=== PATIENT | female | born 1985 | race Caucasian/White ===

== ENCOUNTER 2018-09-06 10:45 | Inpatient (IN) ==
[2018-09-06] MEDS ORDERED: Diphtheria/Tetanus/Pertussis Vaccine Inj 0.5 ML Syringe IM ONE (10:50)
[2018-09-06] MEDS ORDERED: ceFAZolin 2 GM Premix Inj 2 GM/50 ML PIGGYBACK IV.SIG ONE ×2 (10:50→16:53)
[2018-09-06] MEDS ORDERED: fentaNYL Citrate Inj 100 MCG/2 ML Ampul ONE ×2 (10:52→19:41)
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
[2018-09-06 11:13] LABS: Baso % (Auto) 0.5 % (0.0-2.0); Eos % (Auto) 0.2 % (0.0-4.0); Hematocrit 38.5 % (35.0-46.0); Hemoglobin 12.8 gm/dL (11.6-15.3); Lymph # (Auto) 1.5 th/mm3 (1.0-4.8); Lymph % (Auto) 18.5 % (9.0-44.0); Mean Corpuscular HGB Conc 33.3 % (32.0-36.0); Mean Corpuscular Hemoglobin 32.1 pg (27.0-34.0); Mean Corpuscular Volume 96.2 fL (80.0-100.0); Mean Platelet Volume 8.3 fL (7.0-11.0); Mono # (Auto) 0.4 th/mm3 (0.0-0.9); Mono % (Auto) 5.4 % (0.0-8.0); Neut # (Auto) 6.2 th/mm3 (1.8-7.7); Neut % (Auto) 75.4 % (16.0-70.0); Platelet Count 280 th/mm3 (150-450); Red Cell Distribution Width 13.2 % (11.6-17.2); White Blood Count 8.3 th/mm3 (4.0-11.0)
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
[2018-09-06 11:22] LABS: Activated Partial Thrombo Time 29.7 sec (23.4-31.7); INR 1.1 Ratio; Prothrombin Time 10.7 sec (9.8-11.6)
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
[2018-09-06] MEDS ORDERED: Morphine Inj 4 MG/ML Vial IV.PUSH ONE (11:41)
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
[2018-09-06] MEDS ORDERED: Post-op Orders (for Pharmacy) OTHER ONE (11:54)
[2018-09-06] MEDS ORDERED: Naloxone Inj 0.4 MG/ML Vial IV.PUSH PRN (11:54)
[2018-09-06] MEDS ORDERED: Bisacodyl 10 MG Supp RECTAL PRN (11:54)
[2018-09-06] MEDS: Sod Chloride 0.9% Inj 1,000 ML IV.CONT SCH ×2 (12:35→21:06)
[2018-09-06] MEDS: Morphine Inj 4 MG/ML Vial IV.PUSH PRN ×2 (13:39→22:42)
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
[2018-09-06] MEDS ORDERED: Ketamine Inj 50 MG/5 ML Syringe IV.PUSH ONE (16:25)
[2018-09-06] MEDS ORDERED: Lidocaine PF 1% Inj 5 ML Syringe OTHER ONE (16:29)
[2018-09-06] MEDS ORDERED: Phenylephrine/NS 1000 MCG/10ML Syringe IV.PUSH ONE (16:29)
[2018-09-06] MEDS ORDERED: Chlorhexidine Gluconate 2% 1 Pack (2 Cloths) TOPICAL SCH (16:54)
[2018-09-06] MEDS ORDERED: Metoprolol Tartrate 25 MG Tablet PO SCH (16:54)
[2018-09-06] MEDS ORDERED: Sodium Chlor 0.9% Inj 500 ML IV.SIG SCH (17:00)
[2018-09-06] MEDS ORDERED: Bupivacaine PF 0.5% Inj 30 ML Vial ONE (19:04)
[2018-09-06] MEDS ORDERED: *Meperidine Inj 25 MG/ML Vial PERIprocedural Use ONLY ONE (19:39)
[2018-09-06] MEDS ORDERED: *Ondansetron Inj 4 MG/2 ML Vial PERIprocedural Use ONLY ONE (19:43)
[2018-09-06] MEDS ORDERED: *morphine SULFATE 4 MG/ML PERIprocedure ONLY ONE (19:54)
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
--- NOTE | 2018-09-06 20:15 | P.BOP ---
- Preoperative Diagnosis (1) Laceration of left foot with tendon involvement (2) Fracture of navicular (scaphoid) bone of foot, open (3) Laceration of tendon of left ankle (4) Degloving injury of foot - Postoperative Diagnosis (1) Degloving injury of foot (2) Fracture of navicular (scaphoid) bone of foot, open (3) Laceration of left foot with tendon involvement (4) Laceration of tendon of left ankle Date of procedure: 09/06/18 Procedure: 1. Irrigation and debridement of left foot open fractures/degloving injury 2. External fixation left foot/ankle Left dorsal foot/ankle with absent skin across top of midfoot and degloving of medial, distal, and lateral aspects across dorsal foot and absent long and short extensor tendons. There is noted to be visible bone to dorsal aspect of cuneiforms in base of wound. Dorsalis pedis pulse is present and palpable in base of wound. Skin surrounding opening has abrasion at most proximal and lateral aspects. Diffuse debris throughout the wound with glass, gravel, small black bits the size of glitter. Foot is warm to touch with capillary refill intact to all digits. Irrigation with 12L normal saline and debridement of nonviable tissue and debris with #15 blade and rongeur. Examined tissue and found absence of extensor digitorum brevis and absence of distal aspect of extensor digitorum longus tendon with retraction up to anterior ankle and frayed ends with debris noted there and debrided. End of EDL tendon stump tagged with 3-0 prolene suture for future procedure. External fixation device place using two trans-tibial pins and one transcalcaneal pin, as well as two partially threaded half-pins in 5th and 1st metatarsal bases, respectively, connected to hold foot in dorsiflexion to reduce tension on anterior foot. Partial closure with 0 nylon, 2-0 nylon and 3-0 prolene, followed by application of xeroform and small wound vac to dorsal foot/ankle. Measurement of residual dorsal foot/ankle wound is approximately 4.5cm x 3.5cm x 0.5cm depth Xeroform to pin sites and 4x4 with cast padding and short posterior splint applied with tyson bandage. No tourniquet utilized. DISPOSITION: Nonweightbearing left lower extremity PT ordered Vac orders in front of chart for future. Will likely have external fixator on for the duration of her healing time period. Will have another washout in a few days with Dr Goldberg, then, if culture negative, may have another washout with possible graft and tendon procedure over the weekend or early the following week. Anesthesia: GETA, local (30mL 0.5% marcaine plain) Surgeon: Oirn Rogel DPM Front Maker: staff Estimated blood loss (mL): 50 Pathology: other (1. culture left tendon (EDL)) Condition: stable Disposition: PACU
[2018-09-06] MEDS: Senna/Docusate Sodium 8.6/50 MG Tablet PO SCH (21:05)
[2018-09-06] MEDS: ceFAZolin 1 GM Premix Inj 1 GM/50 ML FROZ.PIGGY IV.SIG SCH (21:05)
--- NOTE | 2018-09-06 21:23 | XR ---
EXAM DATE: 09/06/2018 8:37 PM EST AGE/SEX: 89 years / Female INDICATIONS: Post external fixator left foot CLINICAL DATA: This is the patient's subsequent encounter. Patient reports that signs and symptoms h ave been present for 1 day and indicates a pain score of Nonresponsive. MEDICAL/SURGICAL HISTORY: Non-responsive. Non-responsive. COMPARISON: [facility], TIBIA FIBULA LEFT 2V, 09/06/2018. . FINDINGS: External fixation apparatus is seen extending from the proximal metatarsals towards the the tibia. No rmal alignment. CONCLUSION: External fixation placement as above. Electronically signed by: Puma Zuniga MD 09/06/2018 9:22 PM EST
--- NOTE | 2018-09-06 21:24 | XR ---
EXAM DATE: 09/06/2018 8:35 PM EST AGE/SEX: 89 years / Female INDICATIONS: Post external fixator left tibia CLINICAL DATA: This is the patient's subsequent encounter. Patient reports that signs and symptoms h ave been present for 1 day and indicates a pain score of Nonresponsive. MEDICAL/SURGICAL HISTORY: Non-responsive. Non-responsive. [place] [facility] [place], [place]. . FINDINGS: There is external fixation extending inferiorly from the mid tibial shaft. Avulsion fracture noted at the superior aspect of the tarsal navicular. CONCLUSION: External fixation as above. Electronically signed by: Puma Zuniga MD 09/06/2018 9:23 PM EST
--- NOTE | 2018-09-06 22:01 | XR ---
EXAM DATE: 09/06/2018 9:20 PM EST AGE/SEX: 89 years / Female INDICATIONS: Ex fix left ankle. CLINICAL DATA: This is the patient's initial encounter. Patient reports that signs and symptoms have been present for 1 day and indicates a pain score of Nonresponsive. MEDICAL/SURGICAL HISTORY: Non-responsive. Non-responsive. COMPARISON: [facility] – [place], FOOT LIMITED LEFT 2V, 09/06/2018. . FINDINGS: Sequential films reveal exophytic fixation extending from the mid tibial region through the midfoot o f the proximal metatarsals. CONCLUSION: External fixation as above. Electronically signed by: Puma Zuniga MD 09/06/2018 10:00 PM EST
[2018-09-07 03:54] LABS: Baso % (Auto) 0.1 % (0.0-2.0); Hematocrit 21.3 % (35.0-46.0); Lymph # (Auto) 1.3 th/mm3 (1.0-4.8); Lymph % (Auto) 8.6 % (9.0-44.0); Mean Corpuscular HGB Conc 33.1 % (32.0-36.0); Mean Corpuscular Hemoglobin 31.7 pg (27.0-34.0); Mean Corpuscular Volume 95.7 fL (80.0-100.0); Mean Platelet Volume 8.5 fL (7.0-11.0); Mono # (Auto) 0.9 th/mm3 (0.0-0.9); Mono % (Auto) 5.7 % (0.0-8.0); Neut # (Auto) 13.1 th/mm3 (1.8-7.7); Neut % (Auto) 85.6 % (16.0-70.0); Platelet Count 232 th/mm3 (150-450); Red Blood Count 2.23 mil/mm3 (4.00-5.30); Red Cell Distribution Width 13.1 % (11.6-17.2); White Blood Count 15.3 th/mm3 (4.0-11.0)
[2018-09-07] MEDS: ceFAZolin 1 GM Premix Inj 1 GM/50 ML FROZ.PIGGY IV.SIG SCH ×2 (04:43→12:00)
[2018-09-07 05:04] LABS: Calcium 6.9 mg/dL (8.5-10.1); Carbon Dioxide 20.7 meq/L (21.0-32.0); Potassium 4.7 meq/L (3.5-5.1)
[2018-09-07 05:40] LABS: Total Protein 5.5 g/dL (6.4-8.2)
[2018-09-07] MEDS: Morphine Inj 4 MG/ML Vial IV.PUSH PRN ×4 (06:03→16:36)
[2018-09-07] MEDS: Gentamicin/NS 80 mg Premix 100 ML IV.SIG SCH ×2 (06:45→13:52)
[2018-09-07] MEDS ORDERED: Sodium Chlor 0.9% Inj 250 ML IV.SIG SCH (07:00)
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
[2018-09-07] MEDS: Senna/Docusate Sodium 8.6/50 MG Tablet PO SCH ×2 (08:36→20:32)
[2018-09-07] MEDS: Famotidine 20 MG Tablet PO SCH ×2 (08:36→20:31)
[2018-09-07] MEDS: Gabapentin 300 MG Capsule PO SCH ×3 (08:36→18:04)
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
[2018-09-07] MEDS: Sod Chloride 0.9% Inj 1,000 ML IV.CONT SCH ×2 (10:13→18:08)
[2018-09-07] MEDS: ceFAZolin 2 GM Premix Inj 2 GM/50 ML PIGGYBACK IV.SIG SCH ×2 (14:29→20:33)
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
--- NOTE | 2018-09-07 22:51 | P.PNPOD ---
Subjective Interval history: Patient seen bedside post op day 1. Denies any F,N,V,CH. States she has pain which is well controlled on "Roxis". States she is on gabapentin as well which she previously took for her pain. Physical Exam Vital signs: Vital Signs 09/07/18 00:00 09/07/18 02:48 09/07/18 04:00 Temperature 98.0 F 97.7 F Pulse Rate 92 H 81 Respiratory Rate 18 18 18 Blood Pressure 115/74 126/67 Pulse Oximetry 98 100 09/07/18 07:14 09/07/18 07:33 09/07/18 07:39 Temperature 98.0 F 98.1 F Pulse Rate 66 77 Respiratory Rate 18 18 Blood Pressure 123/64 119/61 Pulse Oximetry 98 100 100 09/07/18 07:50 09/07/18 08:15 09/07/18 08:46 Temperature 98.2 F 98.1 F Pulse Rate 68 72 Respiratory Rate 18 18 Blood Pressure 117/65 124/72 Pulse Oximetry 100 99 99 09/07/18 09:12 09/07/18 12:00 09/07/18 16:00 Temperature 98.2 F 97.9 F 98.3 F Pulse Rate 73 67 88 Respiratory Rate 18 22 22 Blood Pressure 128/72 130/72 153/78 H Pulse Oximetry 100 100 100 09/07/18 20:00 Temperature 98.6 F Pulse Rate 99 H Respiratory Rate 18 Blood Pressure 149/92 H Pulse Oximetry 99 Intake & Output 09/07/18 09/07/18 09/08/18 06:59 18:59 06:59 Intake Total 2810 / 2810 2700 / 2700 Output Total 150 / 150 1550 / 1550 Balance 2660 / 2660 1150 / 1150 Weight 85.7 kg Intake: IV 1100 / 1100 2300 / 2300 NS Inj 1,000 ML @ 100 mls/hr IV 1000 / 1000 2000 / 2000 .CONT .Q10H [facility] Rx#:[id number] Gentamicin/NS 80 mg Premix 100 200 / 200 ML @ 200 mls/hr IV.SIG Q8H [facility] Rx#:[id number] Ancef 1 GM Premix Inj 1 gm In 100 / 100 50 / 50 50 ml @ 100 mls/hr IV.SIG Q8H [facility] Rx#:[id number] Ancef 2 GM Premix Inj 2 gm In 50 / 50 50 ml @ 100 mls/hr IV.SIG Q8H [facility] Rx#:[id number] Oral Anesthesia Amount 1700 / 1700 Intake (Blood Product) Amt 400 / 400 Rbc As-3 Leukoreduced Unit 400 / 400 [id number] Output: Urine 0 / 0 1500 / 1500 Emesis 100 / 100 Estimated Blood Loss 50 / 50 Wound Vac Amount 50 / 50 Left Lower Leg 50 / 50 Other: Mode Setting Left Lower Leg Continuous Continuous # Voids 2 Narrative: Wound vac in place and functioning at 125mmHg, active sanginous drainage noted. Reported sensation to digits with INTERNAL AUDIT CONSULTANT under 3 secs left foot. Medications and Allergies Active Medications: Active Medications Al Hydroxide/Mg Hydroxide (Milk Of Magnash[place] Liq) 30 ml PO Q12H PRN PRN Reason: Mild Constipation Bisacodyl (Dulcolax Supp) 10 mg RECTAL DAILY PRN PRN Reason: SEVERE CONSITIPATION Chlorhexidine Gluconate (Chlorhexidine 2% Cloth) 3 pack TOPICAL GROWTH MEDIA MIXER MUSHROOM [facility] Stop: 09/09/18 16:53 Famotidine (Pepcid) 20 mg PO BID [facility] Last Admin: 09/07/18 20:31 Dose: 20 mg Gabapentin (Neurontin) 300 mg PO TID [facility] Last Admin: 09/07/18 18:04 Dose: 300 mg Sodium Chloride (Ns Inj) 1,000 mls @ 100 mls/hr IV.CONT .Q10H [facility] Last Admin: 09/07/18 18:08 Dose: 100 mls/hr Lactated Ringer's (Lr 1000 Ml Inj) 1,000 mls @ 30 mls/hr IV.SIG .Q24H [facility] Sodium Chloride (Ns Inj) 500 mls @ 30 mls/hr IV.SIG .Q10H [facility] Gentamicin Sulfate/Sodium Chloride (Gentamicin/Ns 80 Mg Premix) 100 mls @ 200 mls/hr IV.SIG Q8H [facility] Stop: 09/08/18 05:59 Last Infusion: 09/07/18 14:19 Dose: Infused Cefazolin Sodium/Dextrose (Ancef 2 Gm Premix Inj) 2 gm in 50 mls @ 100 mls/hr IV.SIG Q8H [facility] Stop: 09/08/18 04:29 Last Admin: 09/07/18 20:33 Dose: 100 mls/hr Sodium Chloride (Ns Inj) 250 mls @ 15 mls/hr IV.SIG ONCE [facility] Stop: 09/07/18 23:39 Last Admin: 09/07/18 07:23 Dose: 15 mls/hr Lactulose (Lactulose Liq) 30 ml PO DAILY PRN PRN Reason: SEVERE CONSITIPATION Metoprolol Tartrate (Lopressor) 25 mg PO GROWTH MEDIA MIXER MUSHROOM [facility] Stop: 09/09/18 16:53 Morphine Sulfate (Morphine Inj) 4 mg IV.PUSH Q3H PRN PRN Reason: breakthrough pain Last Admin: 09/07/18 16:36 Dose: 4 mg Naloxone HCl (Narcan Inj) 0.4 mg IV.PUSH UNSCH PRN PRN Reason: SEE LABEL COMMENTS Ondansetron HCl (Zofran Inj) 4 mg IV.PUSH Q6H PRN PRN Reason: NAUSEA OR VOMITING Last Admin: 09/06/18 13:40 Dose: 4 mg Oxycodone HCl (Roxicodone) 5 mg PO Q4H PRN PRN Reason: pain 3 - 5 Last Admin: 09/07/18 21:12 Dose: 5 mg Oxycodone HCl (Roxicodone) 10 mg PO Q4H PRN PRN Reason: Pain 6 - 10 Last Admin: 09/07/18 20:32 Dose: 10 mg Povidone Iodine (Betadine 5% Antisepsis Kit) 1 applicatio EACH NARE GROWTH MEDIA MIXER MUSHROOM [facility] Stop: 09/09/18 16:53 Senna/Docusate Sodium (Rosy-Colace) 1 tab PO BID [facility] Last Admin: 09/07/18 20:32 Dose: 1 tab Sennosides (Senokot) 17.2 mg PO Q12H PRN PRN Reason: Moderate Constipation Allergies Allergy/AdvReac Type Severity Reaction Status Date / Time No Known Allergies Allergy Verified 09/06/18 11:49 Home Medications Medication Instructions Recorded Confirmed Type No Known Home Medications 09/06/18 09/06/18 History Results - Labs CBC & Chem 7: 09/07/18 03:23 09/07/18 03:23 Laboratory Results - last 24 hr 09/07/18 09/07/18 09/07/18 03:23 03:23 06:23 WBC 15.3 H D RBC 2.23 L Hgb 7.0 L D Hct 21.3 L MCV 95.7 MCH 31.7 MCHC 33.1 RDW 13.1 Plt Count 232 MPV 8.5 Neut % (Auto) 85.6 H Lymph % (Auto) 8.6 L [place] % (Auto) 5.7 Eos % (Auto) 0.0 Baso % (Auto) 0.1 Neut # (Auto) 13.1 H Lymph # (Auto) 1.3 [place] # (Auto) 0.9 Eos # (Auto) 0.0 Baso # (Auto) 0.0 WBC Differential . Differential Comment Auto diff final Sodium 140 Potassium 4.7 Chloride 110 H Carbon Dioxide 20.7 L Anion Gap 9 BUN 9 Creatinine 0.92 Estimated GFR 53 L Random Glucose 128 H Calcium 6.9 L* Prot Corrected Calcium 7.7 L Total Protein 5.5 L MTS Gel Crossmatch See Detail Microbiology 09/06/18 18:38 Tissue - Foot Acid Fast Bacilli Smear - Final No acid fast bacilli seen 09/06/18 18:38 Tissue - Foot Gram Stain - Final 09/06/18 18:38 Tissue - Foot Wound Culture - Preliminary Rare growth normal skin marek at 24 hours 09/06/18 18:38 Wound - Foot Fungal Smear - Final No fungal elements seen Assessment and Plan - Plan 33 year old female s/p ex fix application with I&D left foot/ankle for degloving injury Patient seen post op day 1 Discussed surgical intervention with patient To OR for debridement and irrigation of left foot degloving injury with wound vac application Discussed with patient return to OR for application of graft once one more debridement performed NPO after midnight Would recommend addition of celebrex 100mg 1x daily to increase efficacy of gabapentin and reduction of pain medications if possible NWB LLE
[2018-09-08] MEDS: Gentamicin/NS 80 mg Premix 100 ML IV.SIG SCH
[2018-09-08] MEDS: Morphine Inj 4 MG/ML Vial IV.PUSH PRN ×4 (00:25→10:25)
[2018-09-08] MEDS: ceFAZolin 2 GM Premix Inj 2 GM/50 ML PIGGYBACK IV.SIG SCH (03:33)
[2018-09-08 03:41] LABS: Baso # (Auto) 0.1 th/mm3 (0.0-0.2); Baso % (Auto) 0.7 % (0.0-2.0); Eos # (Auto) 0.1 th/mm3 (0.0-0.4); Eos % (Auto) 0.5 % (0.0-4.0); Hematocrit 21.1 % (35.0-46.0); Hemoglobin 7.1 gm/dL (11.6-15.3); Lymph % (Auto) 18.1 % (9.0-44.0); Mean Corpuscular HGB Conc 33.5 % (32.0-36.0); Mean Corpuscular Hemoglobin 31.4 pg (27.0-34.0); Mean Corpuscular Volume 93.7 fL (80.0-100.0); Mean Platelet Volume 8.6 fL (7.0-11.0); Mono # (Auto) 0.8 th/mm3 (0.0-0.9); Mono % (Auto) 7.3 % (0.0-8.0); Neut # (Auto) 8.2 th/mm3 (1.8-7.7); Neut % (Auto) 73.4 % (16.0-70.0); Platelet Count 185 th/mm3 (150-450); Red Blood Count 2.25 mil/mm3 (4.00-5.30); Red Cell Distribution Width 13.9 % (11.6-17.2); White Blood Count 11.1 th/mm3 (4.0-11.0)
[2018-09-08 04:16] LABS: Calcium 7.2 mg/dL (8.5-10.1); Carbon Dioxide 22.4 meq/L (21.0-32.0); Potassium 4.3 meq/L (3.5-5.1)
[2018-09-08 04:34] LABS: Total Protein 5.5 g/dL (6.4-8.2)
[2018-09-08] MEDS: Sod Chloride 0.9% Inj 1,000 ML IV.CONT SCH ×2 (06:09→18:00)
[2018-09-08] MEDS ORDERED: Sodium Chlor 0.9% Inj 250 ML IV.SIG SCH (07:00)
[2018-09-08] MEDS: Gabapentin 300 MG Capsule PO SCH ×3 (08:21→17:29)
[2018-09-08] MEDS: Famotidine 20 MG Tablet PO SCH ×2 (08:21→21:40)
[2018-09-08] MEDS: Senna/Docusate Sodium 8.6/50 MG Tablet PO SCH ×2 (08:22→21:40)
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
[2018-09-08] MEDS ORDERED: Naloxone Inj 0.4 MG/ML Vial IV.PUSH PRN (12:01)
[2018-09-08] MEDS ORDERED: HYDROmorphone PF Inj 1 MG/ML Ampul IV.PUSH ONE (12:30)
[2018-09-08] MEDS: HYDROmorphone PCA Inj 6 MG/30 ML PCA.VIAL PCA SCH ×2 (13:50→23:31)
--- NOTE | 2018-09-08 15:10 | P.PNPOD ---
Subjective Interval history: Patient seen bedside prior to surgical intervention. All questions answered concerning procedure. Patient agrees with surgical intervention. Physical Exam Vital signs: Vital Signs 09/07/18 16:00 09/07/18 20:00 09/08/18 04:00 Temperature 98.3 F 98.6 F 98.3 F Pulse Rate 88 99 H 93 H Respiratory Rate 22 18 18 Blood Pressure 153/78 H 149/92 H 130/62 Pulse Oximetry 100 99 100 09/08/18 08:00 09/08/18 08:04 09/08/18 08:27 Temperature 96.8 F L 98.2 F Pulse Rate 77 Respiratory Rate 18 18 Blood Pressure 137/69 134/74 Pulse Oximetry 100 98 98 09/08/18 08:59 09/08/18 09:29 09/08/18 10:19 Temperature 97.5 F L 97.8 F 97.8 F Pulse Rate 84 74 76 Respiratory Rate 18 18 18 Blood Pressure 137/84 139/79 146/78 H Pulse Oximetry 98 98 99 09/08/18 10:39 09/08/18 10:44 09/08/18 11:13 Temperature 96.7 F L 97.1 F L Pulse Rate 84 78 Respiratory Rate 18 18 Blood Pressure 140/84 124/74 Pulse Oximetry 99 98 09/08/18 12:00 Temperature 99.2 F Pulse Rate 75 Respiratory Rate 20 Blood Pressure 126/68 Pulse Oximetry 99 Intake & Output 09/07/18 09/08/18 09/08/18 18:59 06:59 18:59 Intake Total 2700 / 2700 1200 / 1200 825 / 825 Output Total 1550 / 1550 Balance 1150 / 1150 1200 / 1200 825 / 825 Weight 85.6 kg Intake: IV 2300 / 2300 1200 / 1200 25 / 25 NS Inj 1,000 ML @ 100 mls/hr IV 1999 / 1999 1000 / 1000 .CONT .Q10H [facility] Rx#:[id number] Gentamicin/NS 80 mg Premix 100 200 / 200 100 / 100 ML @ 200 mls/hr IV.SIG Q8H [facility] Rx#:[id number] Ancef 1 GM Premix Inj 1 gm In 50 / 50 50 ml @ 100 mls/hr IV.SIG Q8H [facility] Rx#:[id number] Ancef 2 GM Premix Inj 2 gm In 50 / 50 100 / 100 50 ml @ 100 mls/hr IV.SIG Q8H [facility] Rx#:[id number] Intake (Blood Product) Amt 400 / 400 800 / 800 Rbc As-3 Leukoreduced Unit 400 / 400 [id number] Rbc As-3 Leukoreduced Unit 400 / 400 [id number] Rbc As-3 Leukoreduced Unit 400 / 400 [id number] Output: Urine 1500 / 1500 Wound Vac Amount 50 / 50 Left Lower Leg 50 / 50 Other: Mode Setting Left Lower Leg Continuous Continuous Continuous # Voids 3 Narrative: Dressing and ex-fix intact to left lower extremity. Wound VAC with 125 mm per mercury with over 20 cc of drainage, serosanguineous noted. Capillary refill time to digits x5 left foot. Medications and Allergies Active Medications: Active Medications Al Hydroxide/Mg Hydroxide (Milk Of Yovany Wright) 30 ml PO Q12H PRN PRN Reason: Mild Constipation Bisacodyl (Dulcolax Supp) 10 mg RECTAL DAILY PRN PRN Reason: SEVERE CONSITIPATION Chlorhexidine Gluconate (Chlorhexidine 2% Cloth) 3 pack TOPICAL FUR VAULT ATTENDANT [facility] Stop: 09/09/18 16:53 Diphenhydramine HCl (Benadryl) 25 mg PO Q6H PRN PRN Reason: for itching Famotidine (Pepcid) 20 mg PO BID [facility] Last Admin: 09/08/18 08:21 Dose: Not Given Gabapentin (Neurontin) 300 mg PO TID [facility] Last Admin: 09/08/18 08:21 Dose: Not Given Sodium Chloride (Ns Inj) 1,000 mls @ 100 mls/hr IV.CONT .Q10H [facility] Last Admin: 09/08/18 06:09 Dose: 100 mls/hr Lactated Ringer's (Lr 1000 Ml Inj) 1,000 mls @ 30 mls/hr IV.SIG .Q24H [facility] Sodium Chloride (Ns Inj) 500 mls @ 30 mls/hr IV.SIG .Q10H [facility] Sodium Chloride (Ns Inj) 250 mls @ 15 mls/hr IV.SIG ONCE [facility] Stop: 09/08/18 23:39 Last Admin: 09/08/18 08:21 Dose: 15 mls/hr Hydromorphone/Sodium Chloride (Dilaudid Leather Case Finisher Inj) 6 mg in 30 mls @ 1 mls/hr PATCHER WOOD WELDER UNSCH [facility] Last Infusion: 09/08/18 14:01 Dose: 1 mls/hr Lactulose (Lactulose Liq) 30 ml PO DAILY PRN PRN Reason: SEVERE CONSITIPATION Metoprolol Tartrate (Lopressor) 25 mg PO FUR VAULT ATTENDANT [facility] Stop: 09/09/18 16:53 Naloxone HCl (Narcan Inj) 0.4 mg IV.PUSH UNSCH PRN PRN Reason: SEE LABEL COMMENTS Naloxone HCl (Narcan Inj) 0.4 mg IV.PUSH PRN PRN PRN Reason: SEE LABEL COMMENTS Ondansetron HCl (Zofran Inj) 4 mg IV.PUSH Q6H PRN PRN Reason: NAUSEA OR VOMITING Last Admin: 09/06/18 13:40 Dose: 4 mg Oxycodone HCl (Roxicodone) 5 mg PO Q4H PRN PRN Reason: pain 3 - 5 Last Admin: 09/08/18 04:50 Dose: 5 mg Oxycodone HCl (Roxicodone) 10 mg PO Q4H PRN PRN Reason: Pain 6 - 10 Last Admin: 09/08/18 08:58 Dose: 10 mg Povidone Iodine (Betadine 5% Antisepsis Kit) 1 applicatio EACH NARE FUR VAULT ATTENDANT [facility] Stop: 09/09/18 16:53 Senna/Docusate Sodium (Rosy-Colace) 1 tab PO BID [facility] Last Admin: 09/08/18 08:22 Dose: Not Given Sennosides (Senokot) 17.2 mg PO Q12H PRN PRN Reason: Moderate Constipation Allergies Allergy/AdvReac Type Severity Reaction Status Date / Time No Known Allergies Allergy Verified 09/06/18 11:49 Home Medications Medication Instructions Recorded Confirmed Type No Known Home Medications 09/06/18 09/06/18 History Results - Labs CBC & Chem 7: 09/08/18 03:25 09/08/18 03:25 Laboratory Results - last 24 hr 09/08/18 09/08/18 09/08/18 03:25 03:25 07:17 WBC 11.1 H RBC 2.25 L Hgb 7.1 L Hct 21.1 L MCV 93.7 MCH 31.4 MCHC 33.5 RDW 13.9 Plt Count 185 MPV 8.6 Neut % (Auto) 73.4 H Lymph % (Auto) 18.1 [place] % (Auto) 7.3 Eos % (Auto) 0.5 Baso % (Auto) 0.7 Neut # (Auto) 8.2 H Lymph # (Auto) 2.0 [place] # (Auto) 0.8 Eos # (Auto) 0.1 Baso # (Auto) 0.1 WBC Differential . Differential Comment Auto diff final Sodium 140 Potassium 4.3 Chloride 111 H Carbon Dioxide 22.4 Anion Gap 7 BUN 10 Creatinine 0.88 Estimated GFR 74 L Random Glucose 115 H Calcium 7.2 L* Prot Corrected Calcium 8.1 L Total Protein 5.5 L MTS Gel Crossmatch See Detail Microbiology 09/06/18 18:38 Tissue - Foot Gram Stain - Final 09/06/18 18:38 Tissue - Foot Wound Culture - Final Rare growth normal skin marek No anaerobes isolated 09/06/18 18:38 Tissue - Foot Acid Fast Bacilli Smear - Final No acid fast bacilli seen 09/06/18 18:38 Wound - Foot Fungal Smear - Final No fungal elements seen Assessment and Plan - Plan 33 year old female s/p ex fix application with I&D left foot/ankle for degloving injury Patient to the OR today for debridement irrigation of left foot and ankle with wound VAC placement Discussed surgical intervention with patient Discussed with patient return to OR for application of graft once one more debridement performed Patient has remained NPO after midnight Would recommend addition of celebrex 100mg 1x daily to increase efficacy of gabapentin and reduction of pain medications if possible NWB LLE
[2018-09-08] MEDS ORDERED: Bupivacaine PF 0.5% Inj 30 ML Vial ONE (16:15)
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
[2018-09-08] MEDS ORDERED: Lidocaine PF 1% Inj 5 ML Syringe OTHER ONE (20:40)
[2018-09-08] MEDS ORDERED: ceFAZolin 2 GM Premix Inj 2 GM/50 ML PIGGYBACK IV.SIG ONE (20:49)
--- NOTE | 2018-09-08 21:51 | P.PCN ---
Date of procedure: 09/08/18 Pre-op diagnosis: Left foot and ankle open degloving injury Post-op diagnosis: same Procedure: Left foot debridement and irrigation with wound vac placement Anesthesia: SHIRLEY Surgeon: Arcelia Goldberg Estimated blood loss (mL): 10 Pathology: none sent Condition: stable Disposition: PACU (with VSS and NVS intact to left foot)
[2018-09-08] MEDS ORDERED: Post-op Orders (for Pharmacy) OTHER STA (21:53)
[2018-09-08] MEDS ORDERED: fentaNYL Citrate Inj 100 MCG/2 ML Ampul ONE (22:00)
[2018-09-08] MEDS ORDERED: *morphine SULFATE 4 MG/ML PERIprocedure ONLY ONE (22:18)
[2018-09-08] MEDS: Clindamycin 300 mg/NS Premix 300 MG/50 ML PIGGYBACK IV.SIG SCH (23:32)
[2018-09-09] MEDS: HYDROmorphone PCA Inj 6 MG/30 ML PCA.VIAL PCA SCH ×5 (03:46→20:38)
[2018-09-09] MEDS: Sod Chloride 0.9% Inj 1,000 ML IV.CONT SCH (03:51)
[2018-09-09 03:54] LABS: Baso % (Auto) 0.2 % (0.0-2.0); Eos % (Auto) 0.1 % (0.0-4.0); Hematocrit 30.2 % (35.0-46.0); Hemoglobin 10.4 gm/dL (11.6-15.3); Lymph # (Auto) 0.8 th/mm3 (1.0-4.8); Lymph % (Auto) 6.4 % (9.0-44.0); Mean Corpuscular HGB Conc 34.4 % (32.0-36.0); Mean Corpuscular Hemoglobin 30.9 pg (27.0-34.0); Mean Corpuscular Volume 89.8 fL (80.0-100.0); Mean Platelet Volume 8.7 fL (7.0-11.0); Mono # (Auto) 0.4 th/mm3 (0.0-0.9); Mono % (Auto) 3.3 % (0.0-8.0); Neut # (Auto) 11.1 th/mm3 (1.8-7.7); Platelet Count 202 th/mm3 (150-450); Red Blood Count 3.36 mil/mm3 (4.00-5.30); White Blood Count 12.4 th/mm3 (4.0-11.0)
[2018-09-09 04:03] LABS: Calcium 8.1 mg/dL (8.5-10.1); Carbon Dioxide 24.8 meq/L (21.0-32.0); Potassium 4.9 meq/L (3.5-5.1)
[2018-09-09] MEDS ORDERED: ceFAZolin 2 GM Premix Inj 2 GM/50 ML PIGGYBACK IV.SIG SCH (05:00)
[2018-09-09] MEDS: Clindamycin 300 mg/NS Premix 300 MG/50 ML PIGGYBACK IV.SIG SCH ×3 (05:10→21:45)
[2018-09-09] MEDS: CEFAZOLIN 2 GM IV.SIG SCH ×3 (05:10→20:32)
[2018-09-09] MEDS: Gentamicin/NS 80 mg Premix 100 ML IV.SIG SCH ×3 (05:15→20:32)
[2018-09-09] MEDS: Famotidine 20 MG Tablet PO SCH ×2 (08:24→20:31)
[2018-09-09] MEDS: Polyethylene Glycol 3350 17 GM Packet PO SCH (08:24)
[2018-09-09] MEDS: Gabapentin 300 MG Capsule PO SCH ×3 (08:24→17:00)
[2018-09-09] MEDS: Senna/Docusate Sodium 8.6/50 MG Tablet PO SCH ×2 (08:24→20:31)
[2018-09-09] MEDS: Lactobacillus Acidophilus/L. Spores Tablet PO SCH ×2 (08:24→20:31)
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
[2018-09-09] MEDS: Enoxaparin Inj 30 MG/0.3 ML Syringe SQ SCH ×2 (12:03→20:38)
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
--- NOTE | 2018-09-09 15:51 | P.PNPOD ---
Subjective Interval history: Patient seen bedside. Denies any nausea vomiting fevers or chills. Denies any calf pain. States she is resting comfortably and the HARDWARE DEVELOPER pump is improving her pain. She reports improved numbness and tingling to left digits of foot 15. Physical Exam Vital signs: Vital Signs 09/08/18 20:00 09/08/18 21:48 09/08/18 22:00 Temperature 98.6 F 97.7 F Pulse Rate 81 99 H 82 Respiratory Rate 20 21 21 Blood Pressure 151/75 H 123/78 129/83 Pulse Oximetry 97 96 98 09/08/18 22:15 09/08/18 22:20 09/08/18 22:30 Temperature Pulse Rate 84 77 Respiratory Rate 13 14 Blood Pressure 147/73 H 137/82 Pulse Oximetry 99 95 95 09/08/18 22:37 09/09/18 00:00 09/09/18 04:00 Temperature 97.8 F 97.5 F L 97.5 F L Pulse Rate 76 70 70 Respiratory Rate 14 20 20 Blood Pressure 136/82 123/72 123/72 Pulse Oximetry 98 99 99 09/09/18 07:00 09/09/18 07:51 09/09/18 12:00 Temperature 97.3 F L 97.8 F Pulse Rate 66 83 Respiratory Rate 12 16 16 Blood Pressure 112/72 133/74 Pulse Oximetry 97 98 Intake & Output 09/08/18 09/09/18 09/09/18 18:59 06:59 18:59 Intake Total 1825 / 1825 750 / 750 440 / 440 Output Total 10 10 Balance 1825 / 1825 740 / 740 440 / 440 Weight 85.6 kg 88 kg Intake: IV 1025 / 1025 250 / 250 200 / 200 NS Inj 1,000 ML @ 100 mls/hr IV 1000 / 1000 0 / 0 .CONT .Q10H [facility] Rx#:[id number] Cleocin 300 mg/NS Premix 300 mg 100 / 100 50 / 50 In 50 ml @ 100 mls/hr IV.SIG Q8H [facility] Rx#:[id number] Gentamicin/NS 80 mg Premix 100 100 / 100 100 / 100 ML @ 200 mls/hr IV.SIG Q8H [facility] Rx#:[id number] Ancef 2 GM Premix Inj 2 gm In 50 / 50 50 / 50 50 ml @ 100 mls/hr IV.SIG Q8H [facility] Rx#:[id number] Oral 240 / 240 Anesthesia Amount 500 / 500 Intake (Blood Product) Amt 800 / 800 Rbc As-3 Leukoreduced Unit 400 / 400 [id number] Rbc As-3 Leukoreduced Unit 400 / 400 [id number] Output: Estimated Blood Loss Other: Mode Setting Left Lower Leg Continuous Continuous Continuous Date of Last Bowel Movement 09/08/18 09/06/18 Weight On Admission 85.6 kg Narrative: Dressing intact to left lower extremity with capillary refill time intact to digits of left foot 1 through 5. Wound VAC functioning at 125 mm per mercury. 10 cc of drainage noted to wound VAC canister. Medications and Allergies Active Medications: Active Medications Al Hydroxide/Mg Hydroxide (Milk Of Yovany Lirosalina) 30 ml PO Q12H PRN PRN Reason: Mild Constipation Bisacodyl (Dulcolax Supp) 10 mg RECTAL DAILY PRN PRN Reason: SEVERE CONSITIPATION Chlorhexidine Gluconate (Chlorhexidine 2% Cloth) 3 pack TOPICAL STRIP PICKER [facility] Stop: 09/09/18 16:53 Diphenhydramine HCl (Benadryl) 25 mg PO Q6H PRN PRN Reason: for itching Enoxaparin Sodium (Lovenox Inj) 30 mg SQ Q12HR [facility] Last Admin: 09/09/18 12:03 Dose: 30 mg Famotidine (Pepcid) 20 mg PO BID [facility] Last Admin: 09/09/18 08:24 Dose: 20 mg Gabapentin (Neurontin) 300 mg PO TID [facility] Last Admin: 09/09/18 12:03 Dose: 300 mg Lactated Ringer's (Lr 1000 Ml Inj) 1,000 mls @ 30 mls/hr IV.SIG .Q24H [facility] Sodium Chloride (Ns Inj) 500 mls @ 30 mls/hr IV.SIG .Q10H [facility] Hydromorphone/Sodium Chloride (Dilaudid Battery Inspector Inj) 6 mg in 30 mls @ 1 mls/hr HARDWARE DEVELOPER UNSCH [facility] Last Admin: 09/09/18 14:13 Dose: 1 mls/hr Gentamicin Sulfate/Sodium Chloride (Gentamicin/Ns 80 Mg Premix) 100 mls @ 200 mls/hr IV.SIG Q8H [facility] Last Infusion: 09/09/18 12:35 Dose: Infused Clindamycin/Sodium Chloride (Cleocin 300 Mg/Ns Premix) 300 mg in 50 mls @ 100 mls/hr IV.SIG Q8H [facility] Last Infusion: 09/09/18 14:01 Dose: Infused Cefazolin Sodium/Dextrose (Ancef 2 Gm Premix Inj) 2 gm in 50 mls @ 100 mls/hr IV.SIG Q8H [facility] Last Infusion: 09/09/18 13:17 Dose: Infused Lactobacillus Acidophilus (Lactinex) 1 tab PO BID [facility] Last Admin: 09/09/18 08:24 Dose: 1 tab Lactulose (Lactulose Liq) 30 ml PO DAILY PRN PRN Reason: SEVERE CONSITIPATION Metoprolol Tartrate (Lopressor) 25 mg PO STRIP PICKER [facility] Stop: 09/09/18 16:53 Miscellaneous Information ([facility] Nursing Information) 1 each OTHER UNSCH PRN PRN Reason: SEE LABEL COMMENTS Stop: 09/09/18 22:08 Naloxone HCl (Narcan Inj) 0.4 mg IV.PUSH UNSCH PRN PRN Reason: SEE LABEL COMMENTS Naloxone HCl (Narcan Inj) 0.4 mg IV.PUSH PRN PRN PRN Reason: SEE LABEL COMMENTS Ondansetron HCl (Zofran Inj) 4 mg IV.PUSH Q6H PRN PRN Reason: NAUSEA OR VOMITING Last Admin: 09/06/18 13:40 Dose: 4 mg Oxycodone HCl (Roxicodone) 5 mg PO Q4H PRN PRN Reason: pain 3 - 5 Last Admin: 09/08/18 04:50 Dose: 5 mg Oxycodone HCl (Roxicodone) 10 mg PO Q4H PRN PRN Reason: Pain 6 - 10 Last Admin: 09/08/18 08:58 Dose: 10 mg Polyethylene Glycol (Miralax) 17 gm PO DAILY [facility] Last Admin: 09/09/18 08:24 Dose: 17 gm Povidone Iodine (Betadine 5% Antisepsis Kit) 1 applicatio EACH NARE STRIP PICKER [facility] Stop: 09/09/18 16:53 Last Admin: 09/08/18 16:43 Dose: 1 applicatio Senna/Docusate Sodium (Rosy-Colace) 1 tab PO BID [facility] Last Admin: 09/09/18 08:24 Dose: 1 tab Sennosides (Senokot) 17.2 mg PO Q12H PRN PRN Reason: Moderate Constipation Sodium Chloride (Ns Flush) 2 ml IV.FLUSH BID [facility] Last Admin: 09/09/18 08:24 Dose: Not Given Sodium Chloride (Ns Flush) 2 ml IV.FLUSH PRN PRN PRN Reason: FLUSH AFTER USING IV ACCESS Allergies Allergy/AdvReac Type Severity Reaction Status Date / Time No Known Allergies Allergy Verified 09/06/18 11:49 Home Medications Medication Instructions Recorded Confirmed Type No Known Home Medications 09/06/18 09/06/18 History Results - Labs CBC & Chem 7: 09/09/18 03:35 09/09/18 03:35 Laboratory Results - last 24 hr 09/09/18 09/09/18 03:35 03:35 WBC 12.4 H RBC 3.36 L Hgb 10.4 L D Hct 30.2 L MCV 89.8 D MCH 30.9 MCHC 34.4 RDW 15.0 Plt Count 202 MPV 8.7 Neut % (Auto) 90.0 H Lymph % (Auto) 6.4 L [place] % (Auto) 3.3 Eos % (Auto) 0.1 Baso % (Auto) 0.2 Neut # (Auto) 11.1 H Lymph # (Auto) 0.8 L [place] # (Auto) 0.4 Eos # (Auto) 0.0 Baso # (Auto) 0.0 WBC Differential . Differential Comment Auto diff final Sodium 138 Potassium 4.9 Chloride 106 Carbon Dioxide 24.8 Anion Gap 7 BUN 7 Creatinine 0.92 Estimated GFR 71 L Random Glucose 127 H Calcium 8.1 L D Microbiology 09/06/18 18:38 Tissue - Foot Gram Stain - Final 09/06/18 18:38 Tissue - Foot Wound Culture - Final Rare growth normal skin marek No anaerobes isolated Assessment and Plan - Plan 33 year old female s/p left foot/ankle degloving injury 09/06: I&D LEFT foot of open fx and degloving injury with wound vac placement. Ex-Fix LEFT foot/ankle. 09/08: I&D of left foot degloving injury with wound vac application Discussed with patient return to OR for application of graft Dr. Storey to assume care of patient 09/10 Continue nonweightbearing to left lower extremity Continue to elevate left lower extremity Wound cultures negative to date
[2018-09-10] MEDS: HYDROmorphone PCA Inj 6 MG/30 ML PCA.VIAL PCA SCH ×4 (02:33→16:18)
[2018-09-10] MEDS: Gentamicin/NS 80 mg Premix 100 ML IV.SIG SCH ×3 (05:21→21:17)
[2018-09-10] MEDS: CEFAZOLIN 2 GM IV.SIG SCH ×3 (05:22→21:17)
[2018-09-10] MEDS: Clindamycin 300 mg/NS Premix 300 MG/50 ML PIGGYBACK IV.SIG SCH ×3 (05:22→21:17)
[2018-09-10] MEDS: Polyethylene Glycol 3350 17 GM Packet PO SCH (08:03)
[2018-09-10] MEDS: Lactobacillus Acidophilus/L. Spores Tablet PO SCH ×2 (08:03→21:14)
[2018-09-10] MEDS: Famotidine 20 MG Tablet PO SCH ×2 (08:03→21:14)
[2018-09-10] MEDS: Senna/Docusate Sodium 8.6/50 MG Tablet PO SCH ×2 (08:03→21:14)
[2018-09-10] MEDS: Enoxaparin Inj 30 MG/0.3 ML Syringe SQ SCH ×2 (08:03→21:13)
[2018-09-10] MEDS: Gabapentin 400 MG Capsule PO SCH ×2 (08:03→12:14)
[2018-09-10] MEDS ORDERED: Magnesium Citrate Liq 300 ML Bottle PO ONE (14:15)
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
--- NOTE | 2018-09-10 17:11 | P.PNPOD ---
Physical Exam Vital signs: Vital Signs 09/09/18 20:00 09/10/18 00:00 09/10/18 01:35 Temperature 98.2 F 98.1 F Pulse Rate 70 69 Respiratory Rate 20 16 18 Blood Pressure 120/57 L 127/66 Pulse Oximetry 98 99 09/10/18 04:00 09/10/18 07:00 09/10/18 08:00 Temperature 97.5 F L 97.9 F Pulse Rate 61 68 Respiratory Rate 19 12 18 Blood Pressure 120/77 114/76 Pulse Oximetry 98 100 09/10/18 08:04 09/10/18 11:05 09/10/18 12:00 Temperature 97.6 F Pulse Rate 67 Respiratory Rate 12 12 18 Blood Pressure 129/64 Pulse Oximetry 98 09/10/18 16:00 Temperature 97.4 F L Pulse Rate 77 Respiratory Rate 18 Blood Pressure 126/71 Pulse Oximetry 100 Intake & Output 09/09/18 09/10/18 09/10/18 18:59 06:59 18:59 Intake Total 1280 / 1280 400 / 400 440 / 440 Balance 1280 / 1280 400 / 400 440 / 440 Weight 91.2 kg Intake: IV 200 / 200 400 / 400 200 / 200 NS Inj 1,000 ML @ 100 mls/hr IV 0 / 0 .CONT .Q10H [facility] Rx#:[id number] Cleocin 300 mg/NS Premix 300 mg 50 / 50 100 / 100 50 / 50 In 50 ml @ 100 mls/hr IV.SIG Q8H [facility] Rx#:[id number] Gentamicin/NS 80 mg Premix 100 100 / 100 200 / 200 100 / 100 ML @ 200 mls/hr IV.SIG Q8H [facility] Rx#:[id number] Ancef 2 GM Premix Inj 2 gm In 50 / 50 100 / 100 50 / 50 50 ml @ 100 mls/hr IV.SIG Q8H [facility]A Rx#:[id number] Oral 1080 / 1080 240 / 240 Other: Mode Setting Left Lower Leg Continuous Continuous Continuous # Voids 4 Date of Last Bowel Movement 09/06/18 09/06/18 09/06/18 # Bowel Movements 0 Medications and Allergies Active Medications: Active Medications Al Hydroxide/Mg Hydroxide (Milk Of Magnesia Liq) 30 ml PO Q12H PRN PRN Reason: Mild Constipation Last Admin: 11/14/18 20:30 Dose: 30 ml Bisacodyl (Dulcolax Supp) 10 mg RECTAL DAILY PRN PRN Reason: SEVERE CONSITIPATION Diphenhydramine HCl (Benadryl) 25 mg PO Q6H PRN PRN Reason: for itching Enoxaparin Sodium (Lovenox Inj) 30 mg SQ Q12HR [facility] Last Admin: 09/10/18 08:03 Dose: 30 mg Famotidine (Pepcid) 20 mg PO BID [facility] Last Admin: 09/10/18 08:03 Dose: 20 mg Lactated Ringer's (Lr 1000 Ml Inj) 1,000 mls @ 30 mls/hr IV.SIG .Q24H [facility] Sodium Chloride (Ns Inj) 500 mls @ 30 mls/hr IV.SIG .Q10H [facility] Hydromorphone/Sodium Chloride (Dilaudid Loom Fixer Inj) 6 mg in 30 mls @ 1 mls/hr [employer]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[employer] [facility] Last Admin: 09/10/18 16:18 Dose: 1 mls/hr Gentamicin Sulfate/Sodium Chloride (Gentamicin/Ns 80 Mg Premix) 100 mls @ 200 mls/hr IV.SIG Q8H [facility] Last Infusion: 09/10/18 13:55 Dose: Infused Clindamycin/Sodium Chloride (Cleocin 300 Mg/Ns Premix) 300 mg in 50 mls @ 100 mls/hr IV.SIG Q8H [facility] Last Infusion: 09/10/18 16:12 Dose: Infused Cefazolin Sodium/Dextrose (Ancef 2 Gm Premix Inj) 2 gm in 50 mls @ 100 mls/hr IV.SIG Q8H [facility] Last Infusion: 09/10/18 12:40 Dose: Infused Lactobacillus Acidophilus (Lactinex) 1 tab PO BID [facility] Last Admin: 09/10/18 08:03 Dose: 1 tab Lactulose (Lactulose Liq) 30 ml PO DAILY PRN PRN Reason: SEVERE CONSITIPATION Naloxone HCl (Narcan Inj) 0.4 mg IV.PUSH UNSCH PRN PRN Reason: SEE LABEL COMMENTS Naloxone HCl (Narcan Inj) 0.4 mg IV.PUSH PRN PRN PRN Reason: SEE LABEL COMMENTS Nicotine (Habitrol 14 Mg Patch.24 Hr) 1 patch T-DERMAL DAILY [facility] Last Admin: 09/10/18 08:03 Dose: 1 patch Ondansetron HCl (Zofran Inj) 4 mg IV.PUSH Q6H PRN PRN Reason: NAUSEA OR VOMITING Last Admin: 09/06/18 13:40 Dose: 4 mg Oxycodone HCl (Roxicodone) 5 mg PO Q4H PRN PRN Reason: pain 3 - 5 Last Admin: 09/08/18 04:50 Dose: 5 mg Oxycodone HCl (Roxicodone) 10 mg PO Q4H PRN PRN Reason: Pain 6 - 10 Last Admin: 09/10/18 13:15 Dose: 10 mg Patch Removal (Remove Old Patch) 1 each T-DERMAL DAILY [facility] Polyethylene Glycol (Miralax) 17 gm PO DAILY [facility] Last Admin: 09/10/18 08:03 Dose: 17 gm Senna/Docusate Sodium (Rosy-Colace) 1 tab PO BID [facility] Last Admin: 09/10/18 08:03 Dose: 1 tab Sennosides (Senokot) 17.2 mg PO Q12H PRN PRN Reason: Moderate Constipation Sodium Chloride (Ns Flush) 2 ml IV.FLUSH BID [facility] Last Admin: 09/10/18 08:03 Dose: Not Given Sodium Chloride (Ns Flush) 2 ml IV.FLUSH PRN PRN PRN Reason: FLUSH AFTER USING IV ACCESS Allergies Allergy/AdvReac Type Severity Reaction Status Date / Time No Known Allergies Allergy Verified 09/06/18 11:49 Home Medications Medication Instructions Recorded Confirmed Type No Known Home Medications 09/06/18 09/06/18 History Results - Labs CBC & Chem 7: 09/09/18 03:35 09/09/18 03:35 Assessment and Plan - Assessment (1) Degloving injury of foot Code(s): S91.309A - Unspecified open wound, unspecified foot, initial encounter Status: Acute (2) Laceration of left foot with tendon involvement Code(s): S91.312A - Laceration without foreign body, left foot, initial encounter; S96.922A - Laceration of unspecified muscle and tendon at ankle and foot level, left foot, initial encounter Status: Acute (3) Fracture of navicular (scaphoid) bone of foot, open Code(s): S92.253B - Displaced fracture of navicular [scaphoid] of unspecified foot, initial encounter for open fracture Status: Acute (4) Laceration of tendon of left ankle Code(s): S96.922A - Laceration of unspecified muscle and tendon at ankle and foot level, left foot, initial encounter Status: Acute - Plan To OR tomorrow p.m. with Macario Rogel/[place] for Irrigation and debridement left foot/ankle, adjustment of external fixator left foot/ankle, tenodesis left foot/ankle, skin graft left foot/ankle. NPO after midnight Consent ordered. (1) Degloving injury of foot Qualifiers: Encounter type: initial encounter Laterality: left Qualified Code(s): S91.302A - Unspecified open wound, left foot, initial encounter (2) Laceration of left foot with tendon involvement Qualifiers: Encounter type: initial encounter Qualified Code(s): S91.312A - Laceration without foreign body, left foot, initial encounter; S96.922A - Laceration of unspecified muscle and tendon at ankle and foot level, left foot, initial encounter (3) Fracture of navicular (scaphoid) bone of foot, open Qualifiers: Encounter type: initial encounter Fracture alignment: displaced Laterality: left Qualified Code(s): S92.252B - Displaced fracture of navicular [scaphoid] of left foot, initial encounter for open fracture
[2018-09-11] MEDS: HYDROmorphone PCA Inj 6 MG/30 ML PCA.VIAL PCA SCH ×3 (03:30→22:56)
[2018-09-11 04:37] LABS: Baso % (Auto) 0.6 % (0.0-2.0); Eos # (Auto) 0.2 th/mm3 (0.0-0.4); Eos % (Auto) 2.5 % (0.0-4.0); Hematocrit 29.2 % (35.0-46.0); Hemoglobin 10.1 gm/dL (11.6-15.3); Lymph # (Auto) 1.4 th/mm3 (1.0-4.8); Lymph % (Auto) 18.6 % (9.0-44.0); Mean Corpuscular HGB Conc 34.7 % (32.0-36.0); Mean Corpuscular Volume 92.1 fL (80.0-100.0); Mean Platelet Volume 8.6 fL (7.0-11.0); Mono # (Auto) 0.7 th/mm3 (0.0-0.9); Mono % (Auto) 8.8 % (0.0-8.0); Neut # (Auto) 5.2 th/mm3 (1.8-7.7); Neut % (Auto) 69.5 % (16.0-70.0); Platelet Count 232 th/mm3 (150-450); Red Blood Count 3.17 mil/mm3 (4.00-5.30); Red Cell Distribution Width 14.4 % (11.6-17.2); White Blood Count 7.5 th/mm3 (4.0-11.0)
[2018-09-11] MEDS: CEFAZOLIN 2 GM IV.SIG SCH ×3 (04:51→23:05)
[2018-09-11] MEDS: Gentamicin/NS 80 mg Premix 100 ML IV.SIG SCH ×3 (04:52→22:19)
[2018-09-11] MEDS: Clindamycin 300 mg/NS Premix 300 MG/50 ML PIGGYBACK IV.SIG SCH ×3 (05:34→23:58)
[2018-09-11] MEDS: Famotidine 20 MG Tablet PO SCH ×2 (08:04→22:20)
[2018-09-11] MEDS: Senna/Docusate Sodium 8.6/50 MG Tablet PO SCH ×2 (08:04→22:20)
[2018-09-11] MEDS: Lactobacillus Acidophilus/L. Spores Tablet PO SCH ×2 (08:04→22:20)
[2018-09-11] MEDS: Enoxaparin Inj 30 MG/0.3 ML Syringe SQ SCH ×2 (08:05→22:56)
[2018-09-11] MEDS: Polyethylene Glycol 3350 17 GM Packet PO SCH (08:06)
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
[2018-09-11] MEDS ORDERED: Chlorhexidine Gluconate 2% 1 Pack (2 Cloths) TOPICAL ONE (14:57)
[2018-09-11] MEDS ORDERED: Metoprolol Tartrate 25 MG Tablet PO SCH (14:57)
[2018-09-11] MEDS ORDERED: Sodium Chlor 0.9% Inj 500 ML IV.SIG SCH (15:00)
[2018-09-11] MEDS ORDERED: Sodium Chloride 0.9% 2 ML Flush PRN IV.FLUSH (15:03)
[2018-09-11] MEDS ORDERED: *Meperidine Inj 25 MG/ML Vial PERIprocedural Use ONLY ONE (19:23)
[2018-09-11] MEDS ORDERED: *morphine SULFATE 10 MG/ML PERIprocedure ONLY ONE ×2 (19:23→19:33)
--- NOTE | 2018-09-11 19:29 | P.BOP ---
- Preoperative Diagnosis (1) Degloving injury of foot (2) Laceration of left foot with tendon involvement (3) Fracture of navicular (scaphoid) bone of foot, open (4) Laceration of tendon of left ankle - Postoperative Diagnosis (1) Degloving injury of foot (2) Laceration of left foot with tendon involvement (3) Fracture of navicular (scaphoid) bone of foot, open (4) Laceration of tendon of left ankle Date of procedure: 09/11/18 Procedure: 1. irrigation and debridement left foot/ankle with graft 2. tenodesis left Extensor digitorum longus 6.5 x 8cm x 0.3cm depth dorsal left foot measurements Since previous surgery, wound had granulated in considerably with mild maceration to skin edges. Mild serous drainage. No apparent necrosis of residual skin edges since previous surgery. Irrigation with 3L normal saline, followed by whipstitching tendon, then tendon was attached to dorsal talar neck with 5.5mm Arthrex tenodesis screw. Neox graft applied to dorsal foot/ankle wound, followed by application of small wound vac set at 125mmHg medium continuous setting. DISPOSITION: Continue wound vac through the weekend. Will observe graft take on Friday and determine if patient will need home wound vac vs. home health for dressing changes based on appearance of wound/graft. Anticipate patient will be ready for discharge late Friday vs. Friday. Nonweightbearing left. No further surgery planned at this time in the near future, but possible repeat graft and definite removal of external fixator in approximately 2 weeks. Implants: arthrex screw, see log Anesthesia: GETA Surgeon: Orin Rogel DPM Building Custodial Supervisor: staff Estimated blood loss (mL): 10 Pathology: none sent Condition: stable Disposition: PACU
[2018-09-11] MEDS ORDERED: *HYDROmorphone PF Inj 1 MG/ML Ampul PERIprocedural Use ONLY ONE ×2 (19:45→19:56)
--- NOTE | 2018-09-11 19:45 | XR ---
EXAM DATE: 09/11/2018 7:35 PM EST AGE/SEX: 33 years / Female INDICATIONS: Left ankle ORIF. CLINICAL DATA: This is the patient's initial encounter. Patient reports that signs and symptoms have been present for 1 day and indicates a pain score of Nonresponsive. MEDICAL/SURGICAL HISTORY: Non-responsive. Non-responsive. COMPARISON: [facility] [place], FOOT COMPLETE LEFT 3V, 09/06/2018. . FINDINGS: 3 images are recorded digitally in the operating room using C-arm external fixation hardware. CONCLUSION: Intraoperative images. Electronically signed by: Paul Del Rio MD 09/11/2018 7:44 PM EST
[2018-09-11] MEDS: Sodium Chloride 0.9% 2 ML Flush BID IV.FLUSH SCH (22:30)
[2018-09-12] MEDS: CEFAZOLIN 2 GM IV.SIG SCH ×3 (04:26→21:27)
[2018-09-12] MEDS: HYDROmorphone PCA Inj 6 MG/30 ML PCA.VIAL PCA SCH ×2 (04:44→10:35)
[2018-09-12] MEDS: Gentamicin/NS 80 mg Premix 100 ML IV.SIG SCH ×3 (05:37→20:45)
[2018-09-12] MEDS: Clindamycin 300 mg/NS Premix 300 MG/50 ML PIGGYBACK IV.SIG SCH ×3 (06:22→22:44)
--- NOTE | 2018-09-12 07:05 | P.DCO ---
- Physical Therapy Order: Evaluate and treat, Improve ambulation, Strength and gait training - Occupational Therapy Order: Evaluate and treat, Improve ADL - Home Health Nursing Order: Medical education, Signs/symptoms of disease process, Medication education-adverse effect, Nursing assessment with vital signs - Case Management Consult Case Management Consult-Home Health: Yes - Certification I have seen patient Lauren Gonzalez on 09/12/18. My clinical findings support the need for the requested home health care services because: Limited mobility due to disease progression, Deconditioned with increased weakness, Limited ability to care for self, High risk of falls, Infection with risk of complications I certify that my clinical findings support that this patient is homebound because: Post-op weakness, Unsteady gait/balance, Unsafe to leave home unassisted, Unable to use public transportation
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
[2018-09-12] MEDS: Senna/Docusate Sodium 8.6/50 MG Tablet PO SCH ×2 (10:00→20:40)
[2018-09-12] MEDS: Lactobacillus Acidophilus/L. Spores Tablet PO SCH ×2 (10:00→20:40)
[2018-09-12] MEDS: Famotidine 20 MG Tablet PO SCH ×2 (10:00→20:41)
[2018-09-12] MEDS: Enoxaparin Inj 30 MG/0.3 ML Syringe SQ SCH ×2 (10:01→20:41)
[2018-09-12] MEDS: Polyethylene Glycol 3350 17 GM Packet PO SCH (10:08)
[2018-09-12] MEDS: Sodium Chloride 0.9% 2 ML Flush BID IV.FLUSH SCH ×2 (10:09→20:46)
[2018-09-12] MEDS ORDERED: HYDROmorphone PF Inj 1 MG/ML Ampul IV.PUSH PRN (13:33)
[2018-09-12] MEDS ORDERED: Methocarbamol 500 MG Tablet PO PRN (13:38)
[2018-09-12] MEDS: Ibuprofen 400 MG Tablet PO SCH ×2 (14:23→22:43)
--- NOTE | 2018-09-12 14:47 | P.PNPOD ---
Subjective Interval history: s/p graft application and interference screw application. DOS 09/11/[address] Rogel. 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 Physical Exam Vital signs: Vital Signs 09/11/18 16:00 09/11/18 19:04 09/11/18 19:15 Temperature 98.4 F 97.6 F Pulse Rate 81 85 84 Respiratory Rate 20 13 20 Blood Pressure 124/79 158/71 H 157/91 H Pulse Oximetry 94 L 100 100 09/11/18 19:30 09/11/18 19:45 09/11/18 20:00 Temperature 97.5 F L Pulse Rate 70 65 57 L Respiratory Rate 16 18 11 L Blood Pressure 160/95 H 152/96 H 153/87 H Pulse Oximetry 100 100 100 09/11/18 20:03 09/11/18 20:15 09/11/18 20:16 Temperature 98.1 F Pulse Rate 62 75 Respiratory Rate 7 L 11 L 20 Blood Pressure 145/91 H 139/94 H Pulse Oximetry 100 100 09/12/18 00:00 09/12/18 04:00 09/12/18 08:00 Temperature 97.6 F 97.7 F 97.5 F L Pulse Rate 71 69 71 Respiratory Rate 18 18 18 Blood Pressure 134/75 125/60 133/79 Pulse Oximetry 97 98 97 09/12/18 12:00 Temperature 97.4 F L Pulse Rate 82 Respiratory Rate 20 Blood Pressure 143/79 H Pulse Oximetry 100 Intake & Output 09/11/18 09/12/18 09/12/18 18:59 06:59 18:59 Intake Total 950 / 950 600 / 600 Output Total 410 / 410 300 / 300 Balance 540 / 540 300 / 300 Weight 89 kg Intake: IV 250 / 250 400 / 400 Cleocin 300 mg/NS Premix 300 mg 100 / 100 100 / 100 In 50 ml @ 100 mls/hr IV.SIG Q8H [facility] Rx#:[id number] Gentamicin/NS 80 mg Premix 100 100 / 100 200 / 200 ML @ 200 mls/hr IV.SIG Q8H [facility] Rx#:[id number] Ancef 2 GM Premix Inj 2 gm In 50 / 50 100 / 100 50 ml @ 100 mls/hr IV.SIG Q8H [facility] Rx#:[id number] Oral 0 / 0 Anesthesia Amount 700 / 700 200 / 200 Output: Urine 400 / 400 300 / 300 Estimated Blood Loss Other: Mode Setting Left Lower Leg Continuous Continuous # Voids 2 # Incontinent Voids 1 Date of Last Bowel Movement 09/10/18 09/12/18 Narrative: LE Intact dressing and no strikethrough Minimal drainage in the VAC Medications and Allergies Active Medications: Active Medications Al Hydroxide/Mg Hydroxide (Milk Of Magnesia Liq) 30 ml PO Q12H PRN PRN Reason: Mild Constipation Last Admin: 09/09/18 20:30 Dose: 30 ml Bisacodyl (Dulcolax Supp) 10 mg RECTAL DAILY PRN PRN Reason: SEVERE CONSITIPATION Diphenhydramine HCl (Benadryl) 25 mg PO Q6H PRN PRN Reason: for itching Enoxaparin Sodium (Lovenox Inj) 30 mg SQ Q12HR [facility] Last Admin: 09/12/18 10:01 Dose: 30 mg Famotidine (Pepcid) 20 mg PO BID [facility] Last Admin: 09/12/18 10:00 Dose: 20 mg Fentanyl (Duragesic 25 Mcg Patch.72hr) 1 patch T-DERMAL Q3D [facility] Last Admin: 09/12/18 14:24 Dose: 1 patch Hydromorphone HCl (Dilaudid Pf Inj) 0.5 mg IV.PUSH Q4H PRN PRN Reason: BREAKTHROUGH PAIN Lactated Ringer's (Lr 1000 Ml Inj) 1,000 mls @ 30 mls/hr IV.SIG .Q24H [facility] Hydromorphone/Sodium Chloride (Dilaudid Information Analyst Inj) 6 mg in 30 mls @ 1 mls/hr CUBE MACHINE TENDER UNSCH [facility] Last Admin: 09/12/18 10:35 Dose: 1 mls/hr Gentamicin Sulfate/Sodium Chloride (Gentamicin/Ns 80 Mg Premix) 100 mls @ 200 mls/hr IV.SIG Q8H [facility] Last Admin: 09/12/18 14:23 Dose: 200 mls/hr Clindamycin/Sodium Chloride (Cleocin 300 Mg/Ns Premix) 300 mg in 50 mls @ 100 mls/hr IV.SIG Q8H [facility] Last Infusion: 09/12/18 06:55 Dose: Infused Cefazolin Sodium/Dextrose (Ancef 2 Gm Premix Inj) 2 gm in 50 mls @ 100 mls/hr IV.SIG Q8H [facility] Last Infusion: 09/12/18 04:56 Dose: Infused Lactated Ringer's (Lr 1000 Ml Inj) 1,000 mls @ 30 mls/hr IV.SIG .Q24H [facility] Stop: 09/12/18 14:59 Acetaminophen (Ofirmev Inj) 1,000 mg in 100 mls @ 400 mls/hr IV.SIG Q6H [facility] Stop: 09/14/18 20:14 Ibuprofen (Motrin) 400 mg PO Q8H [facility] Last Admin: 09/12/18 14:23 Dose: 400 mg Lactobacillus Acidophilus (Lactinex) 1 tab PO BID [facility] Last Admin: 09/12/18 10:00 Dose: 1 tab Lactulose (Lactulose Liq) 30 ml PO DAILY [facility] Last Admin: 09/12/18 10:08 Dose: Not Given Methocarbamol (Robaxin) 500 mg PO Q8H PRN PRN Reason: muscle spasms Metoprolol Tartrate (Lopressor) 25 mg PO KOSHER INSPECTOR [facility] Stop: 09/12/18 14:56 Miscellaneous Information ([facility] Nursing Information) 1 each OTHER UNSCH PRN PRN Reason: SEE LABEL COMMENTS Stop: 09/12/18 19:28 Naloxone HCl (Narcan Inj) 0.4 mg IV.PUSH UNSCH PRN PRN Reason: SEE LABEL COMMENTS Naloxone HCl (Narcan Inj) 0.4 mg IV.PUSH PRN PRN PRN Reason: SEE LABEL COMMENTS Nicotine (Habitrol 14 Mg Patch.24 Hr) 1 patch T-DERMAL DAILY [facility] Last Admin: 09/12/18 09:59 Dose: 1 patch Ondansetron HCl (Zofran Inj) 4 mg IV.PUSH Q6H PRN PRN Reason: NAUSEA OR VOMITING Last Admin: 09/10/18 21:57 Dose: 4 mg Oxycodone HCl (Roxicodone) 5 mg PO Q4H PRN PRN Reason: pain 3 - 5 Last Admin: 09/08/18 04:50 Dose: 5 mg Oxycodone HCl (Roxicodone) 10 mg PO Q4H PRN PRN Reason: Pain 6 - 10 Last Admin: 09/12/18 14:23 Dose: 10 mg Patch Removal (Remove Old Patch) 1 each T-DERMAL DAILY [facility] Last Admin: 09/12/18 10:09 Dose: 1 each Patch Removal (Remove Old Patch) 1 each T-DERMAL Q3D [facility] Polyethylene Glycol (Miralax) 17 gm PO DAILY [facility] Last Admin: 09/12/18 10:08 Dose: Not Given Pregabalin (Lyrica) 50 mg PO TID [facility] Senna/Docusate Sodium (Rosy-Colace) 1 tab PO BID [facility] Last Admin: 09/12/18 10:00 Dose: 1 tab Sennosides (Senokot) 17.2 mg PO Q12H PRN PRN Reason: Moderate Constipation Sodium Chloride (Ns Flush) 2 ml IV.FLUSH BID [facility] Last Admin: 09/12/18 10:09 Dose: Not Given Sodium Chloride (Ns Flush) 2 ml IV.FLUSH PRN PRN PRN Reason: FLUSH AFTER USING IV ACCESS Sodium Chloride (Ns Flush) 2 ml IV.FLUSH BID [facility] Last Admin: 09/12/18 10:09 Dose: Not Given Sodium Chloride (Ns Flush) 2 ml IV.FLUSH PRN PRN PRN Reason: FLUSH AFTER USING IV ACCESS Allergies Allergy/AdvReac Type Severity Reaction Status Date / Time No Known Allergies Allergy Verified 09/06/18 11:49 Home Medications Medication Instructions Recorded Confirmed Type No Known Home Medications 09/06/18 09/06/18 History Results - Labs CBC & Chem 7: 09/11/18 04:05 09/09/18 03:35 Laboratory Results - last 24 hr 09/11/18 15:46 POC Glucose 98 - Imaging Impressions Ankle X-Ray 09/11/18 00:00 CONCLUSION: Intraoperative images. Assessment and Plan - Assessment (1) Degloving injury of foot Code(s): S91.309A - Unspecified open wound, unspecified foot, initial encounter Status: Acute (2) Laceration of left foot with tendon involvement Code(s): S91.312A - Laceration without foreign body, left foot, initial encounter; S96.922A - Laceration of unspecified muscle and tendon at ankle and foot level, left foot, initial encounter Status: Acute (3) Fracture of navicular (scaphoid) bone of foot, open Code(s): S92.253B - Displaced fracture of navicular [scaphoid] of unspecified foot, initial encounter for open fracture Status: Acute (4) Laceration of tendon of left ankle Code(s): S96.922A - Laceration of unspecified muscle and tendon at ankle and foot level, left foot, initial encounter Status: Acute - Plan [place] with pain management Will continue to follow Dr Wilson will begin coverage on 09/14/18 (1) Degloving injury of foot Qualifiers: Encounter type: initial encounter Laterality: left Qualified Code(s): S91.302A - Unspecified open wound, left foot, initial encounter (2) Laceration of left foot with tendon involvement Qualifiers: Encounter type: initial encounter Qualified Code(s): S91.312A - Laceration without foreign body, left foot, initial encounter; S96.922A - Laceration of unspecified muscle and tendon at ankle and foot level, left foot, initial encounter (3) Fracture of navicular (scaphoid) bone of foot, open Qualifiers: Encounter type: initial encounter Fracture alignment: displaced Laterality: left Qualified Code(s): S92.252B - Displaced fracture of navicular [scaphoid] of left foot, initial encounter for open fracture
[2018-09-12] MEDS: Pregabalin 25 MG Capsule PO SCH (17:09)
[2018-09-13] MEDS: Gentamicin/NS 80 mg Premix 100 ML IV.SIG SCH ×3 (04:50→22:56)
[2018-09-13] MEDS: CEFAZOLIN 2 GM IV.SIG SCH ×3 (05:26→21:45)
[2018-09-13 05:59] LABS: Baso % (Auto) 0.6 % (0.0-2.0); Eos # (Auto) 0.2 th/mm3 (0.0-0.4); Eos % (Auto) 2.7 % (0.0-4.0); Hematocrit 29.6 % (35.0-46.0); Lymph # (Auto) 1.3 th/mm3 (1.0-4.8); Mean Corpuscular HGB Conc 33.9 % (32.0-36.0); Mean Corpuscular Hemoglobin 31.2 pg (27.0-34.0); Mean Corpuscular Volume 92.3 fL (80.0-100.0); Mean Platelet Volume 8.4 fL (7.0-11.0); Mono # (Auto) 0.9 th/mm3 (0.0-0.9); Mono % (Auto) 11.5 % (0.0-8.0); Neut # (Auto) 5.3 th/mm3 (1.8-7.7); Neut % (Auto) 68.2 % (16.0-70.0); Platelet Count 252 th/mm3 (150-450); Red Blood Count 3.21 mil/mm3 (4.00-5.30); Red Cell Distribution Width 14.3 % (11.6-17.2); White Blood Count 7.7 th/mm3 (4.0-11.0)
[2018-09-13] MEDS: Ibuprofen 400 MG Tablet PO SCH ×3 (05:59→22:54)
[2018-09-13] MEDS: Clindamycin 300 mg/NS Premix 300 MG/50 ML PIGGYBACK IV.SIG SCH ×2 (06:00→14:22)
[2018-09-13 06:18] LABS: Anion Gap 8 meq/L (5-15); Blood Urea Nitrogen 8 mg/dL (7-18); Calcium 8.3 mg/dL (8.5-10.1); Carbon Dioxide 21.3 meq/L (21.0-32.0); Chloride 108 meq/L (98-107); Glomerular Filtration Rate Greater Than 89 mL/min (>89); Glucose,Random 99 mg/dL (74-106); Potassium 5.1 meq/L (3.5-5.1); Sodium 137 meq/L (136-145)
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
[2018-09-13] MEDS: Sodium Chloride 0.9% 2 ML Flush BID IV.FLUSH SCH (09:00)
[2018-09-13] MEDS: Polyethylene Glycol 3350 17 GM Packet PO SCH (09:00)
[2018-09-13] MEDS: Lactobacillus Acidophilus/L. Spores Tablet PO SCH ×2 (09:16→21:31)
[2018-09-13] MEDS: Senna/Docusate Sodium 8.6/50 MG Tablet PO SCH ×2 (09:42→21:23)
[2018-09-13] MEDS: Enoxaparin Inj 30 MG/0.3 ML Syringe SQ SCH ×2 (09:42→21:23)
[2018-09-13] MEDS: Pregabalin 25 MG Capsule PO SCH ×3 (09:42→17:45)
[2018-09-13] MEDS: Famotidine 20 MG Tablet PO SCH ×2 (09:42→21:23)
[2018-09-14] MEDS: Clindamycin 300 mg/NS Premix 300 MG/50 ML PIGGYBACK IV.SIG SCH ×4 (00:02→21:04)
[2018-09-14] MEDS: Sodium Chloride 0.9% 2 ML Flush BID IV.FLUSH SCH ×3 (00:03→21:06)
[2018-09-14] MEDS: Gentamicin/NS 80 mg Premix 100 ML IV.SIG SCH ×3 (04:43→21:04)
[2018-09-14] MEDS: CEFAZOLIN 2 GM IV.SIG SCH ×3 (05:17→23:14)
[2018-09-14] MEDS: Ibuprofen 400 MG Tablet PO SCH ×3 (05:56→23:14)
[2018-09-14] MEDS: Lactobacillus Acidophilus/L. Spores Tablet PO SCH ×2 (08:34→21:05)
[2018-09-14] MEDS: Enoxaparin Inj 30 MG/0.3 ML Syringe SQ SCH ×2 (08:35→21:05)
[2018-09-14] MEDS: Pregabalin 25 MG Capsule PO SCH ×3 (08:35→17:49)
[2018-09-14] MEDS: Famotidine 20 MG Tablet PO SCH ×2 (08:35→21:05)
[2018-09-14] MEDS: Polyethylene Glycol 3350 17 GM Packet PO SCH (08:36)
[2018-09-14] MEDS: Senna/Docusate Sodium 8.6/50 MG Tablet PO SCH ×2 (08:37→21:05)
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
[2018-09-15] MEDS: CEFAZOLIN 2 GM IV.SIG SCH (04:38)
[2018-09-15] MEDS: Gentamicin/NS 80 mg Premix 100 ML IV.SIG SCH (04:38)
[2018-09-15] MEDS: Ibuprofen 400 MG Tablet PO SCH (05:14)
[2018-09-15] MEDS: Clindamycin 300 mg/NS Premix 300 MG/50 ML PIGGYBACK IV.SIG SCH (05:14)
[2018-09-15] MEDS: Polyethylene Glycol 3350 17 GM Packet PO SCH (08:45)
[2018-09-15] MEDS: Lactobacillus Acidophilus/L. Spores Tablet PO SCH (08:45)
[2018-09-15] MEDS: Enoxaparin Inj 30 MG/0.3 ML Syringe SQ SCH (08:45)
[2018-09-15] MEDS: Pregabalin 25 MG Capsule PO SCH (08:45)
[2018-09-15] MEDS: Famotidine 20 MG Tablet PO SCH (08:45)
[2018-09-15] MEDS: Senna/Docusate Sodium 8.6/50 MG Tablet PO SCH (08:46)
[2018-09-15] MEDS: Sodium Chloride 0.9% 2 ML Flush BID IV.FLUSH SCH (10:11)
--- NOTE | 2018-09-15 11:03 | P.DCO ---
- Home Health Nursing Order: Wound care and dressing changes, Nursing assessment with vital signs Instructions: M/W/F dressing changes to left foot/ankle/leg with the following: betadine and 4x4 to all pin sites, adaptic nonadherent gauze over graft to dorsal foot, dry 4x4s over graft, ABD pad over graft, amanda strategically wrapped around all gauze to hold in place under external fixator, tyson over all amanda. - Case Management Consult Case Management Consult-Home Health: Yes - Certification I have seen patient Lauren Gonzalez on 09/15/18. My clinical findings support the need for the requested home health care services because: Limited ability to care for self I certify that my clinical findings support that this patient is homebound because: Post-op weakness
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
[2018-09-15] MEDS ORDERED: Clindamycin 300 mg/Dex Premix 300 MG/50 ML PIGGYBACK IV.SIG SCH (14:00)
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
== END 2018-09-15 15:16 | disposition home health service (06) ==
LOC: NEPI 10:45 → NEDA 11:58 → EDBD 11:58 → N05 13:20
PROVIDERS: ADMIT Surgery; ATTEND Surgery
PROC: DEBRIDE (2018-09-08 20:40)